=== PATIENT | female | born 1960 | race Two or more races ===

== ENCOUNTER 2018-07-17 07:31 | Day surgery (SDC) | payer OTHER ==
[2018-07-17] VITALS (7 sets, daily range): BP systolic 104–135; BP diastolic 60–74
[~2018-07-17] VITALS: Ht 157.5 cm; Wt 61.2 kg
[~2018-07-17 07:31] MED LIST: LR 1000ml 1,000 ML IVLG SCH
[2018-07-17] MEDS ORDERED: LR 1000ml 1,000 ML IVLG SCH (07:36)
--- NOTE | 2018-07-17 07:38 | Anethesia Preoperative Eval ---
Anesthesia Pre-op PMH/ROS General Date of Evaluation: Jul 17, 2018 Time of Evaluation: 07:37 Anesthesiologist: symone ASA Score: ASA 3 Mallampati Score Class I : Soft palate, uvula, fauces, pillars visible Class II: Soft palate, uvula, fauces visible Class III: Soft palate, base of uvula visible Class IV: Only hard plate visible Mallampati Classification: Class II Surgeon: amara Diagnosis: cancer screening Surgical Procedure: colonoscopy Anesthesia History: none Family History: no anesthesia problems Allergies: Coded Allergies: No Known Allergies (Unverified , 07/16/18) Medications: see eMAR Patient NPO?: Yes Past Medical History Gastrointestinal/Genitourinary: Reports: other - cervical cancer Musculoskeletal/Integumentary: Reports: OA, other - sciatica Anesthesia Pre-op Phys. Exam Physician Exam Last Vital Signs Date Time Temp Pulse Resp B/P (MAP) Pulse Ox O2 Delivery O2 Flow Rate FiO2 07/17/18 08:15 Room Air 07/17/18 08:12 97.9 91 18 133/74 99 Constitutional: NAD Neurologic: CN 2-12 intact Cardiovascular: RRR Respiratory: CTA Gastrointestinal: S/NT/ND Airway Exam Mallampati Score: Class I MO: full Neck: flexible TMD: 2fb ROM: limited Anesthesia Pre-op A/P Risk Assessment & Plan Assessment: asa3 Plan: mac Status Change Before Surgery: No Pre-Antibiotics Drug: Sydney Bailey MD Jul 17, 2018 07:38
[2018-07-17] MEDS ORDERED: Atropine Inj 1mg/10ml Syr IV PRN (07:45)
[2018-07-17] MEDS ORDERED: DiphenhydrAMINE 50mg/ml Inj IVP PRN (07:45)
[2018-07-17] MEDS ORDERED: fentaNYL 100 mcg/2 mL IV PRN (07:45)
[2018-07-17] MEDS ORDERED: Midazolam 2mg/2ml Inj IVP PRN (07:45)
[2018-07-17] MEDS ORDERED: MULTIVITAMINS1 EAC2 ORAL (08:24)
[2018-07-17] MEDS ORDERED: TRAZODONE HCL150 MG ORAL (08:25)
[2018-07-17] MEDS ORDERED: VITAMIN C500 M1 ORAL (08:26)
[2018-07-17] MEDS ORDERED: Vit D3 PO (08:27)
[2018-07-17] MEDS ORDERED: Vit B12 PO (08:28)
[2018-07-17] MEDS ORDERED: LR 1000ml ONE (08:30)
[2018-07-17] MEDS ORDERED: Propofol 200mg/20ml IV ONE (08:30)
[2018-07-17] MEDS ORDERED: Lidocaine 1% MPF 10mg/ml 5ml ONE (08:30)
--- NOTE | 2018-07-17 08:31 | Pre-Procedure Note/Attestation ---
Pre-Procedure Note/Attestation Complete Prior to Procedure Planned Procedure: not applicable Procedure Narrative: Colonoscopy, possible biopsy, polypectomy, hemostasis, submucosal injection Indications for Procedure Pre-Operative Diagnosis: Cancer screening Attestation I attest that I discussed the nature of the procedure; its benefits; risks and complications; and alternatives (and the risks and benefits of such alternatives ), prior to the procedure, with the patient (or the patient's legal leasing representative). I attest that, if there was a reasonable possibility of needing a blood transfusion, the patient (or the patient's legal leasing representative) was given the [facility] standardized written summary, pursuant to the [place] Blood Safety Act ([place] Health and Safety Code # 1645, as amended). I attest that I re-evaluated the patient just prior to the surgery and that there has been no change in the patient's H&P, except as documented below: Ruthy Chance MD Jul 17, 2018 08:31
--- NOTE | 2018-07-17 09:35 | Endoscopy Procedure Note ---
Endoscopy Procedure Note General Procedures Performed: colonoscopy Operative Findings/Diagnosis: tansverse colon polyp x 2 Specimen: yes Pt Tolerated Procedure Well: Yes Estimated Blood Loss: minimal Anesthesia Anesthesiologist: Corrie Palumbo MD Anesthesia: moderate sedation Medications Medication Given: see anesthesia record Inserted Devices Implant(s) used?: No Quality Quality of Bowel Preparation: Excellent Did scope reach the cecum?: Yes Was there any complications?: No GI Core Measures 50 yrs or older w/o bx or poly: No 10yrs. F/U not recommended: No Ruthy Chance MD Jul 17, 2018 09:35
--- NOTE | 2018-07-17 09:49 | Immediate Post-Op Evaluation ---
Immediate Post-Op Evalulation Immediate Post-Op Evalulation Procedure: colonoscopy w/bx Date of Evaluation: Jul 17, 2018 Time of Evaluation: 09:47 IV Fluids: 325ml lr Blood Products: none Estimated Blood Loss: negligible Blood Pressure Systolic: 123 Blood Pressure Diastolic: 72 Pulse Rate: 82 Respiratory Rate: 18 O2 Sat by Pulse Oximetry: 100 Temperature (Fahrenheit): 97.4 Pain Score (1-10): 0 Nausea: No Vomiting: No Complications none Patient Status: awake, reacts, patent Hydration Status: adequate Drug: Sydney Bailey MD Jul 17, 2018 09:49
--- NOTE | 2018-07-17 09:50 | 48 Hour Post Anesthesia Eval ---
Post Anesthesia Evaluation Procedure: colonoscopy w/bx Date of Evaluation: Jul 17, 2018 Time of Evaluation: 09:49 Blood Pressure Systolic: 125 0: 78 Pulse Rate: 82 Respiratory Rate: 18 Temperature (Fahrenheit): 97.4 O2 Sat by Pulse Oximetry: 100 Airway: patent Nausea: No Vomiting: No Pain Intensity: 0 Hydration Status: adequate Cardiopulmonary Status: stable Mental Status/LOC: patient returned to baseline Post-Anesthesia Complications: none Follow-up care needed: N/A Sydney Benz MD Jul 17, 2018 09:50
--- NOTE | 2018-07-17 14:15 | Operative Note - Dictated ---
DATE OF OPERATION: 07/17/2018 PREPROCEDURE DIAGNOSIS: Cancer screening. POSTPROCEDURE DIAGNOSIS: Transverse colon polyps x2, mild internal hemorrhoids. PROCEDURE: Colonoscopy with cold forceps biopsy. SURGEON: Ruthy Chance M.D. ANESTHESIOLOGIST: Sydney Benz M.D. ANESTHESIA: Propofol sedation. INDICATION FOR PROCEDURE: The patient is a 57-year-old female with a history of previous colonoscopy by me on July 10, 2013, which had no polyps. In light of the patient's age, it was determined at this time to proceed with a followup colonoscopy. DESCRIPTION OF PROCEDURE: Upon consent of the patient, the patient brought to the procedure room and placed in left lateral decubitus position. Once adequate sedation was established with propofol drip, digital rectal exam was performed, which showed some mild internal hemorrhoids. The Olympus colonoscope was advanced through the anus and into the rectum. The descending colon, splenic flexure, transverse colon, hepatic flexure, ascending colon were visualized. The cecum was easily reached and ileocecal valve and appendiceal orifice were identified. The patient's prep noted to be good. The terminal ileum was intubated and was noted to be normal. The colonoscope was slowly withdrawn and there was noted to be two benign appearing polyps in the transverse colon, which were removed with the cold forceps biopsy. This was sent off the field as specimen. The post polypectomy site was noted to have no active bleeding. Upon reaching the rectum, the colonoscope was retroflexed and was noted to be mild internal hemorrhoids. The scope was straightened, air was evacuated from the rectum, the colonoscope was removed. The patient was awakened from anesthesia and brought to the postanesthesia recovery room in stable condition. There were no complications. IMPRESSION: Transverse colon polyps x2, mild internal hemorrhoids. PLAN: Repeat colonoscopy in five years, continue high-fiber diet, and yearly followup. Ruthy Chance M.D. DR: EMILE JOB#: [id number] CC: Ruthy Chance M.D.; Fax#: [phone] Raad Gage M.D.
== END 2018-07-17 11:50 | disposition home or self-care (01) ==
LOC: GAS 07:31
DX: Z12.11 Encounter for screening for malignant neoplasm of colon (principal); K63.5 Polyp of colon; K64.8 Other hemorrhoids; M54.30 Sciatica, unspecified side; M19.90 Unspecified osteoarthritis, unspecified site; Z85.41 Personal history of malignant neoplasm of cervix uteri
CPT/HCPCS: 45380; J2704; 94003; 94150